=== PATIENT | male | born 1970 | race Caucasian/White ===

== ENCOUNTER 2021-10-27 22:55 | Emergency (ER) | payer OTHER ==
[2021-10-27] MEDS ORDERED: Ondansetron 4 MG/2 ML SDV IVPUSH ONE (22:57)
[2021-10-27] MEDS ORDERED: Morphine 4 MG/ML VIAL IVPUSH ONE (22:57)
[2021-10-27] MEDS ORDERED: Iopamidol 755 MG/ML 500 ML Multipack Bottle IVPUSH STA (23:42)
[2021-10-27 23:49] LABS: CARBON DIOXIDE,CO2 25.9 mmol/L (21.0-32.0); POTASSIUM,K 3.8 mmol/L (3.5-5.1)
== END 2021-10-28 01:19 | disposition home or self-care (01) ==
LOC: MW.ED 22:55
DX: R07.89 Other chest pain (principal); Z79.899 Other long term (current) drug therapy; Z90.49 Acquired absence of other specified parts of digestive tract; Z20.822 Contact with and (suspected) exposure to COVID-19
CPT/HCPCS: 36415; 71045; 71275; 74174; 80053; 83690; 83735; 83880; 84484; 85025; 85610; 85730; 87635; 93005; 96374; 96375; 99285; J2270; J2405; Q9967; 93010; 99284; U0002

== ENCOUNTER 2022-11-01 00:36 | Emergency (ER) | payer OTHER ==
[2022-11-01] MEDS ORDERED: Sodium Chloride 0.9% 2.5 ML Syringe FLUSH PRN (00:51)
[2022-11-01] MEDS ORDERED: Sodium Chloride 0.9% 10 ML Syringe FLUSH PRN (00:51)
[2022-11-01 01:02] LABS: BASOPHILS ABSOLUTE AUTO 0.1 K/uL (0.0-0.1); EOSINOPHILS ABSOLUTE AUTO 0.2 K/uL (0.0-0.7); EOSINOPHILS PERCENT AUTO 1.4 % (0.0-7.0); HEMATOCRIT 34.5 % (38.0-50.0); HEMOGLOBIN 10.9 g/dL (13.0-17.0); LYMPHOCYTES ABSOLUTE AUTO 2.3 K/uL (0.6-2.4); LYMPHOCYTES PERCENT AUTO 20.2 % (16.0-40.0); MEAN CORPUSCULAR HEMOGLOBIN 31.1 pg (27.0-32.0); MEAN CORPUSCULAR HGB CONC 31.6 g/dL (31.0-37.0); MEAN CORPUSCULAR VOLUME 98.3 fL (80.0-98.0); MONOCYTES ABSOLUTE AUTO 0.6 K/uL (0.0-0.8); MONOCYTES PERCENT AUTO 5.5 % (0.0-15.0); NEUTROPHILS ABSOLUTE AUTO 8.2 K/uL (1.4-5.7); NEUTROPHILS PERCENT AUTO 71.9 % (48.0-80.0); NRBC ABSOLUTE 0 K/uL; RED BLOOD CELL COUNT 3.51 M/uL (4.50-5.90); WHITE BLOOD CELL COUNT,WBC 11.42 K/uL (4.0-11.0)
[2022-11-01 01:17] LABS: INR 1.04 (0.86-1.11)
[2022-11-01 01:30] LABS: PLATELET COUNT,PLT 1118 K/uL (150-400)
[2022-11-01 01:31] LABS: ALBUMIN 3.4 g/dL (3.4-5.0); BILIRUBIN TOTAL 0.4 mg/dL (0.2-1.0); CALCIUM 8.8 mg/dL (8.5-10.1); CARBON DIOXIDE,CO2 26.4 mmol/L (21.0-32.0); CREATININE 1.1 mg/dL (0.8-1.3); EST CRCL DRUG DOSING (CG) 75.14 mL/min; PROTEIN TOTAL,TP 6.8 g/dL (6.4-8.2)
== END 2022-11-01 03:00 | disposition left against medical advice (07) ==
LOC: MW.ED 00:36
DX: D64.9 Anemia, unspecified (principal); K92.2 Gastrointestinal hemorrhage, unspecified; D75.839 Thrombocytosis, unspecified
CPT/HCPCS: 36415; 80053; 84484; 85025; 85610; 86850; 86900; 86901; 93005; 99285; J3490; 93010; 99284